=== PATIENT | female | born 1950 | race Caucasian/White ===

== ENCOUNTER → 2018-11-28 | Outpatient (CLI) | payer MEDICARE, OTHER ==
[~2018-11-28] MED LIST: SESTAMIBI TC99M/UD ISOTOPE 1 EA INJ INJ ONE
[2018-11-28 10:40] VITALS: BP 137/83
== END | disposition home or self-care (01) ==
LOC: CARDMN 09:26
PROVIDERS: ATTEND Internal Medicine Interventional Cardiology
DX: R07.9 Chest pain, unspecified (principal)
CPT/HCPCS: 78452; 93017; A9500